=== PATIENT | female | born 1975 | race African-American/Black ===

== ENCOUNTER 2016-09-07 22:01 | Inpatient (IN) | payer OTHER ==
[~2016-09-07] VITALS: Ht 165.1 cm; Wt 130.6 kg
--- NOTE | ~2016-09-07 | EKG ---
[address] [place] [address] ELECTROCARDIOGRAM REPORT Name: PATRICIA MCGUIRE Room #: 434-P 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
--- NOTE | ~2016-09-07 | HC ---
[facility] [place] [address] CONSULTATION Name: PATRICIA MCGUIRE Room #: 434-P [facility] [place] .R.#: [id number] Admission: 09/08/16 Attend Phys: Carroll Gan MD Discharge: 09/10/16 Date of : 79 Report #: [id number] THIS REPORT FOR: //name// CC: FAM unknown Carroll Gan HISTORY OF PRESENT ILLNESS: The patient is a 41-year-old female who awoke this morning with right-sided numbness the face, arm and leg. She still has it today. The patient was concerned about being discharged because she did not want to go home and have a stroke. The patient realizes that she also has a history of anxiety. She was seen at [facility] and is on clonazepam 1 mg twice a day. Since she has been in the hospital, clonazepam has been discontinued. The patient has been on clonazepam for approximately 3 years. Along with anxiety, there are no other neurological symptoms. The patient does not have double vision, blurry vision, difficulty speaking or swallowing, vertigo, lightheadedness or unilateral weakness, numbness or tingling. The patient does have headaches. She has had chronic daily headache for the past year. She takes Tylenol every day. These headaches are bifrontal pressure sensation lasting 3-4 hours, sometimes they are better with sleep or with taking Tylenol, which again she takes on a daily basis. PAST MEDICAL HISTORY: Hypertension, asthma, anxiety, gastroesophageal reflux, panic attack. PAST SURGICAL HISTORY: Noncontributory. MEDICATIONS: Indomethacin 25 mg t.i.d., metoprolol 50 mg b.i.d., pantoprazole 40 mg daily, Senokot 2 tablets at bedtime. At home she also takes clonazepam 1 mg b.i.d. ALLERGIES: None. VITAL SIGNS: Temperature is 36.7, pulse rate 61, respiratory rate 18, blood pressure 121/78, bedside pulse oximetry 100% on room air. LABORATORY DATA: White blood cell count 4.5, hemoglobin 10.6, hematocrit 32.4, MCV 74.7, platelet count 187,000. Chemistry: Sodium 136, potassium 3.4, chloride 102, carbon dioxide 25, BUN 9, creatinine 0.5, GFR 113, glucose 93, calcium 8.4, magnesium 1.7, total bilirubin 0.3, AST 20, ALT 24, alkaline phosphatase 93, creatinine kinase 120, total protein 2.7, albumin 3.4. IMAGING: CT scan of the head and MRI of the head are negative for stroke. In fact, they are both unremarkable. NEUROLOGIC: Cranial nerves 2-12 are grossly intact. Motor exam demonstrates symmetrical strength in all 4 extremities with tone and bulk normal. Reflexes [address] [address] CONSULTATION Name: PATRICIA MCGUIRE Room #: 434-P [facility] [place] M.R.#: [id number] Admission: 09/08/16 Attend Phys: Carroll Gan MD Discharge: 09/10/16 Date of : 79 Report #: [id number] are trace throughout. Plantar responses are flexor. There is no evidence of dysmetria. Gait was not tested. IMPRESSION AND PLAN: This patient has paresthesias of the right hemibody. This is most likely related to anxiety. If there is no medical reason to discontinue clonazepam, I would put the patient back on clonazepam 1 mg twice a day. I discussed stroke risk factors with the patient. I explained that she would be considered young to have a stroke, but she does have some risk factors including obesity and a history of hypertension, although her blood pressure is well controlled. She does not have diabetes, but I will check her lipid profile in the morning as this is a risk factor for stroke if her cholesterol is not well controlled. We also discussed her chronic daily headache and I asked her not to take Tylenol on a daily basis. She might benefit from a medication such as topiramate 25 mg at bedtime. This may help her lose weight as well. I thank you for your kind referral of the patient. <ELECTRONICALLY SIGNED> By: Yolanda Reardon DO 09/10/16 1457 2038 0039 Yolanda Reardon DO /nt
[~2016-09-07 22:01] MED LIST: ADVAIR 100-501 EACH; ADVAIR 250-501 EACH; ALBUTEROL INHAL17 GM IH; ALBUTEROL2.5 MG/0.1; ALBUTEROL2.5 MG/32; AMBIEN; AZITHROMYCIN 2250 MG PO; BIRTH CONTROL; CHERATUSSIN DA480 ML; CLARITIN10 M2; CLONAZEPAM 1 MG1 M1 PO; COMPAZINE10 MG PO; CYMBALTA60 MG PO; DEPAKOTE 250MG250 M1; DOXYCYCLINE 10100 M1 PO; FERRO-TIME325 MG; FERRO-TIME325 MG PO; FLAGYL500 MG PO; FLONASE; GABAPENTIN100 MG PO; GEODON60 MG; IBUPROFEN 800800 M1 PO; IBUPROFEN 800800 MG PO; IRON325 PO; IRON45 MG PO; KEFLEX500 MG PO; LATUDA20 MG; LATUDA40 MG PO; LOPRESSOR50 PO; MUCINEX600 MG PO; NAPROSYN500 MG PO; NORCO 5-325 TA1 EACH PO; NORFLEX100 MG PO; PENICILLIN VK500 M1 PO; PHENERGAN 25 MG25 M1 PO; PREDNISONE 20 M20 MG PO; PRISTIQ50 MG PO; PROVENTIL; PROVENTIL HFA6.7 G1; PSEUDOEPHEDRINE; SIMVASTATIN20 MG PO; TESSALON PERLE100 MG PO; TRAZODONE 150150 M1; VICODIN 5-5001 EACH PO; ZANTAC 150MG T150 M1 PO; ZANTAC 150MG T150 MG PO; ZESTORETIC 20-1 EAC1 PO; ZPAK; ZPAK PO
[2016-09-07 22:08] VITALS: BP 138/77
[2016-09-07 22:56] LABS: ABSOLUTE NEUTROPHILS 2.8 thou/uL (1.4-8.2); BASOPHILS 0.4 % (0.0-2.0); EOSINOPHILS 4.6 % (0.0-3.0); HEMATOCRIT 33.9 % (37.0-47.0); LYMPHOCYTES 30.3 % (24.0-44.0); MCH 24.5 pg (26.0-34.0); MCHC 32.5 g/dL (28.0-37.0); MCV 75.2 fL (80.0-100.0); MONOCYTES 8.7 % (1.0-8.0); PLATELET COUNT 210 thou/uL (150-400); RBC 4.51 mil/uL (4.20-5.00); RDW 16.2 % (10.5-14.5)
[2016-09-07 23:02] LABS: MANUAL DIFF NO
[2016-09-07 23:03] LABS: ANION GAP 8 mmol/L (7-16); BUN 8 mg/dL (7-18); CALCIUM 8.5 mg/dL (8.5-10.1); CHLORIDE 103 mmol/L (98-107); CO2 27 mmol/L (21-32); CREATININE 0.7 mg/dL (0.6-1.0); GLUCOSE 98 mg/dL (74-106); POTASSIUM 3.4 mmol/L (3.5-5.1); SODIUM 138 mmol/L (136-145)
[2016-09-07 23:21] LABS: ALBUMIN 3.4 g/dL (3.4-5.0); ALKALINE PHOSPHATASE 93 U/L (46-116); CK-MB MASS 0.5 ng/mL (<0.5-3.6); MAGNESIUM 1.7 mg/dL (1.8-2.4); NT-PRO BRAIN NAT PEPTIDE 35 pg/mL (<300); SGOT 20 U/L (15-37); SGPT 24 U/L (30-65); TOTAL BILIRUBIN 0.3 mg/dL (<0.1-1.0); TOTAL PROTEIN 7.7 g/dL (6.4-8.2); TROPONIN-I < 0.04 ng/mL (<0.04-0.07)
[2016-09-07 23:59] VITALS: BP 141/85
[2016-09-08 00:30] VITALS: BP 138/87
[2016-09-08 04:29] VITALS: BP 125/69
[2016-09-08 06:02] LABS: HEMATOCRIT 32.4 % (37.0-47.0); HEMOGLOBIN 10.6 gm/dL (12.0-15.0); MCH 24.3 pg (26.0-34.0); MCHC 32.6 g/dL (28.0-37.0); MCV 74.7 fL (80.0-100.0); RBC 4.34 mil/uL (4.20-5.00); RDW 15.9 % (10.5-14.5); WBC 4.5 thou/uL (4.0-11.0)
[2016-09-08 06:38] LABS: CALCIUM 8.4 mg/dL (8.5-10.1); CREATININE 0.7 mg/dL (0.6-1.0); POTASSIUM 3.4 mmol/L (3.5-5.1)
[2016-09-08 08:09] VITALS: BP 113/65
[2016-09-08 15:42] VITALS: BP 141/80
[2016-09-08 19:13] VITALS: BP 115/65
[2016-09-09 04:44] VITALS: BP 143/73
[2016-09-09] MEDS ORDERED: INDOMETHACIN 2525 MG PO (08:28)
[2016-09-09 09:20] VITALS: BP 143/73
[2016-09-09 16:04] VITALS: BP 121/76
[2016-09-09 20:05] VITALS: BP 149/68
[2016-09-10 04:03] LABS: CHOLESTEROL 182 mg/dL (<200); HDL CHOLESTEROL 33 mg/dL (>40); LDL CHOLESTEROL 122 mg/dL (<100); SERUM ASSESSMENT Clear; TC:HDL 5.5 Ratio (Not establshd); TRIGLYCERIDE 139 mg/dL (<150); VLDL 28 mg/dL (<40)
[2016-09-10 05:15] VITALS: BP 122/63
[2016-09-10 08:00] VITALS: BP 126/89
[2016-09-10 11:32] VITALS: BP 143/73
== END 2016-09-10 12:33 | disposition home or self-care (01) | DRG 206 ==
LOC: ER 22:01 → 4S 23:44 → EROBS 23:44 → 4S 09-08 00:23
PROVIDERS: Emergency Medicine; Nurse Practitioner Family; Psychiatry & Neurology Neurology
DX: M94.0 Chondrocostal junction syndrome [Tietze] (principal); Z68.42 Body mass index [BMI] 45.0-49.9, adult; J45.909 Unspecified asthma, uncomplicated; K21.9 Gastro-esophageal reflux disease without esophagitis; I10 Essential (primary) hypertension; M79.605 Pain in left leg; M79.604 Pain in right leg; F41.9 Anxiety disorder, unspecified; R51 Headache; D64.9 Anemia, unspecified; R07.89 Other chest pain; E83.42 Hypomagnesemia; E87.6 Hypokalemia; F20.9 Schizophrenia, unspecified; E66.9 Obesity, unspecified; Z79.899 Other long term (current) drug therapy; Z82.49 Family history of ischemic heart disease and other diseases of the circulatory system; Z80.9 Family history of malignant neoplasm, unspecified; Z83.3 Family history of diabetes mellitus
CPT/HCPCS: 10100

== ENCOUNTER 2016-11-21 20:29 | Emergency (ER) | payer OTHER ==
[~2016-11-21] VITALS: Ht 167.6 cm; Wt 138.3 kg
--- NOTE | ~2016-11-21 | EKG ---
[place] [address] [facility] [place] [address] ELECTROCARDIOGRAM REPORT Name: PATRICIA MCGUIRE ROBERTCaity [facility] #: [facility] [id number] Admission: 11/21/16 Attend Phys: Discharge: 11/21/16 Date of : [birth year] Report #: [id number] THIS REPORT FOR: //name// [facility] ED Test Date: 2016-11-21 Test Time: 21:10:19 Pat Name: PATRICIA MCGUIRE Department: Room: Gender: F Manager University: [place] : 1975 Requested By: Simone Tracy Order Number: [id number] MD: Kemar Valdivia Measurements Intervals [place] Rate: 70 P: 29 NE: 147 QRS: 33 QRSD: 111 T: 9 QT: 390 QTc: 421 Interpretive Statements Sinus rhythm No significant abnormality Compared to ECG 09/07/2016 22:06:13 No significant changes Electronically Signed On 11-22-2016 8:36:17 CDT by Kemar Valdivia [email or web address] <ELECTRONICALLY SIGNED> By: Kemar Valdivia MD, [facility] 11/22/16 0836 09 09 Kemar Valdivia MD, FACC /EPI
[~2016-11-21 20:29] MED LIST changes: +INDOMETHACIN 2525 MG PO
[2016-11-21 21:32] LABS: ABSOLUTE NEUTROPHILS 3.7 thou/uL (1.4-8.2); BASOPHILS 0.5 % (0.0-2.0); EOSINOPHILS 1.3 % (0.0-3.0); HEMATOCRIT 35.9 % (37.0-47.0); HEMOGLOBIN 11.3 gm/dL (12.0-15.0); MCH 23.8 pg (26.0-34.0); MCHC 31.5 g/dL (28.0-37.0); MCV 75.7 fL (80.0-100.0); MONOCYTES 7.6 % (1.0-8.0); PLATELET COUNT 247 thou/uL (150-400); POLYS 65.6 % (36.0-66.0); RBC 4.75 mil/uL (4.20-5.00); WBC 5.6 thou/uL (4.0-11.0)
[2016-11-21 21:35] LABS: MANUAL DIFF NO
[2016-11-21 21:39] LABS: ANION GAP 7 mmol/L (7-16); BUN 13 mg/dL (7-18); CALCIUM 9.4 mg/dL (8.5-10.1); CHLORIDE 102 mmol/L (98-107); CO2 28 mmol/L (21-32); CREATININE 0.9 mg/dL (0.6-1.0); GLUCOSE 106 mg/dL (74-106); POTASSIUM 3.8 mmol/L (3.5-5.1); SODIUM 137 mmol/L (136-145)
[2016-11-21 21:47] LABS: TROPONIN-I < 0.04 ng/mL (<0.04-0.07)
[2016-11-21] MEDS ORDERED: BUTALB-APAP-CA1 EACH PO (23:16)
== END 2016-11-21 23:42 | disposition home or self-care (01) ==
LOC: ER 20:29
PROVIDERS: Emergency Medicine
DX: R51 Headache (principal); I10 Essential (primary) hypertension; J45.909 Unspecified asthma, uncomplicated; F41.9 Anxiety disorder, unspecified; E78.00 Pure hypercholesterolemia, unspecified; K21.9 Gastro-esophageal reflux disease without esophagitis; F20.9 Schizophrenia, unspecified; Z87.440 Personal history of urinary (tract) infections

== ENCOUNTER 2017-10-06 09:37 | Emergency (ER) | payer OTHER ==
[~2017-10-06] VITALS: Ht 167.6 cm; Wt 133.8 kg
[~2017-10-06 09:37] MED LIST changes: +BUTALB-APAP-CA1 EACH PO
[2017-10-06] MEDS ORDERED: IBUPROFEN 600600 M1 PO (09:45)
[2017-10-06] MEDS ORDERED: MOBIC15 MG PO (11:00)
== END 2017-10-06 11:19 | disposition home or self-care (01) ==
LOC: ER 09:37
DX: S83.91XA Sprain of unspecified site of right knee, initial encounter (principal); W10.9XXA Fall (on) (from) unspecified stairs and steps, initial encounter; Y93.89 Activity, other specified; Y92.89 Other specified places as the place of occurrence of the external cause; Y99.8 Other external cause status; I10 Essential (primary) hypertension; F41.9 Anxiety disorder, unspecified; J45.909 Unspecified asthma, uncomplicated; K21.9 Gastro-esophageal reflux disease without esophagitis; E78.00 Pure hypercholesterolemia, unspecified

== ENCOUNTER 2017-11-12 17:21 | Emergency (ER) | payer OTHER ==
[~2017-11-12] VITALS: Ht 167.6 cm; Wt 133.8 kg
--- NOTE | ~2017-11-12 | EKG ---
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: JLAMBERTZ : 1975 Requested By: Mel Cotton Order Number: [id number] MD: Kemar Valdivia Measurements Intervals [place] Rate: 80 P: 151 GA: 137 QRS: 131 QRSD: 102 T: -15 QT: 369 QTc: 426 Interpretive Statements Lead reversal, recommend repeat tracing Sinus or ectopic atrial rhythm Left atrial enlargement Right axis deviation Compared to ECG 11/21/2016 21:10:19 Lead reversal is now present Electronically Signed On 11-13-2017 9:08:45 CDT by Kemar Valdivia [email or web address] <ELECTRONICALLY SIGNED> By: Kemar Valdivia MD, [facility] 08907 174 45 Kemar Valdivia MD, [facility] /EPI
[~2017-11-12 17:21] MED LIST changes: +IBUPROFEN 600600 M1 PO; +MOBIC15 MG PO
[2017-11-12 17:38] LABS: ABSOLUTE NEUTROPHILS 3.9 thou/uL (1.4-8.2); BASOPHILS 0.4 % (0.0-2.0); EOSINOPHILS 2.1 % (0.0-3.0); HEMATOCRIT 40.6 % (37.0-47.0); HEMOGLOBIN 13.5 gm/dL (12.0-15.0); LYMPHOCYTES 26.7 % (24.0-44.0); MCH 25.3 pg (26.0-34.0); MCHC 33.3 g/dL (28.0-37.0); MONOCYTES 8.7 % (1.0-8.0); PLATELET COUNT 273 thou/uL (150-400); POLYS 62.1 % (36.0-66.0); RBC 5.34 mil/uL (4.20-5.00); WBC 6.4 thou/uL (4.0-11.0)
[2017-11-12 17:46] LABS: ANION GAP 8 mmol/L (7-16); BUN 11 mg/dL (7-18); CALCIUM 9.4 mg/dL (8.5-10.1); CHLORIDE 101 mmol/L (98-107); CO2 25 mmol/L (21-32); CREATININE 0.8 mg/dL (0.6-1.0); GLUCOSE 136 mg/dL (74-106); POTASSIUM 3.9 mmol/L (3.5-5.1); SODIUM 134 mmol/L (136-145)
[2017-11-12 17:56] LABS: ALBUMIN 3.7 g/dL (3.4-5.0); SGOT 26 U/L (15-37); SGPT 36 U/L (30-65); TOTAL BILIRUBIN 0.4 mg/dL (<0.1-1.0); TOTAL PROTEIN 8.9 g/dL (6.4-8.2); TROPONIN-I <0.06 ng/mL (<0.06)
[2017-11-12] MEDS ORDERED: LEVSIN0.125 MG PO (20:19)
[2017-11-12] MEDS ORDERED: MOBIC7.5 MG PO (20:19)
== END 2017-11-12 20:39 | disposition home or self-care (01) ==
LOC: ER 17:21
PROVIDERS: Physician Assistant
DX: R07.89 Other chest pain (principal); R10.11 Right upper quadrant pain; R42 Dizziness and giddiness; I10 Essential (primary) hypertension; F41.9 Anxiety disorder, unspecified; J45.909 Unspecified asthma, uncomplicated; F20.9 Schizophrenia, unspecified; E78.00 Pure hypercholesterolemia, unspecified; E66.9 Obesity, unspecified; K21.9 Gastro-esophageal reflux disease without esophagitis; Z86.2 Personal history of diseases of the blood and blood-forming organs and certain disorders involving the immune mechanism; Z68.42 Body mass index [BMI] 45.0-49.9, adult

== ENCOUNTER 2018-01-19 13:59 | Emergency (ER) | payer OTHER ==
[~2018-01-19] VITALS: Ht 167.6 cm; Wt 136.1 kg
--- NOTE | ~2018-01-19 | EKG ---
[place] [address] [facility] [place] [address] ELECTROCARDIOGRAM REPORT Name: PATRICIA MCGUIER [facility] [id number] Admission: 01/19/18 Attend Phys: Discharge: 01/19/18 Date of : [birth year] Report #: [id number] THIS REPORT FOR: //name// [facility] ED Test Date: 2018-01-19 Test Time: 14:12:47 Pat Name: PATRICIA MCGUIRE Department: Room: Gender: F Proposal Consultant: LUNA : 1975 Requested By: Simone Tracy Order Number: [id number] MD: Kemar Valdivia Measurements Intervals [place] Rate: 90 P: 38 [place]: 139 QRS: 40 QRSD: 102 T: 6 QT: 375 QTc: 459 Interpretive Statements Sinus rhythm Normal tracing Compared to ECG 12/11/2017 22:10:19 No significant changes Electronically Signed On 01-22-2018 8:19:13 CDT by Kemar Valdivia [email or web address] <ELECTRONICALLY SIGNED> By: Kemar Valdivia MD, [facility] 01/22/18 0819 1412 1412 Kemar Valdivia MD, FACC /EPI
[~2018-01-19 13:59] MED LIST changes: +CELEBREX 200 M200 M1 PO; +HYDROCODONE-AP1 EAC6 PO; +LEVSIN0.125 MG PO; +MOBIC7.5 MG PO
[2018-01-19 14:34] LABS: ABSOLUTE NEUTROPHILS 2.9 thou/uL (1.4-8.2); BASOPHILS 0.5 % (0.0-2.0); EOSINOPHILS 1.9 % (0.0-3.0); HEMATOCRIT 40.8 % (37.0-47.0); HEMOGLOBIN 13.6 gm/dL (12.0-15.0); LYMPHOCYTES 28.6 % (24.0-44.0); MCH 25.1 pg (26.0-34.0); MCHC 33.4 g/dL (28.0-37.0); MCV 75.2 fL (80.0-100.0); PLATELET COUNT 247 thou/uL (150-400); RBC 5.43 mil/uL (4.20-5.00); RDW 14.8 % (10.5-14.5); WBC 4.8 thou/uL (4.0-11.0)
[2018-01-19 14:42] LABS: ANION GAP 6 mmol/L (7-16); BUN 7 mg/dL (7-18); CALCIUM 9.8 mg/dL (8.5-10.1); CHLORIDE 100 mmol/L (98-107); CO2 29 mmol/L (21-32); CREATININE 0.8 mg/dL (0.6-1.0); GLUCOSE 111 mg/dL (74-106); POTASSIUM 3.8 mmol/L (3.5-5.1); SODIUM 135 mmol/L (136-145)
[2018-01-19] MEDS ORDERED: LATUDA60 MG PO (14:47)
[2018-01-19] MEDS ORDERED: OMEPRAZOLE20 MG PO (14:48)
[2018-01-19 14:50] LABS: TROPONIN-I <0.06 ng/mL (<0.06)
== END 2018-01-19 16:16 | disposition home or self-care (01) ==
LOC: ER 13:59
PROVIDERS: Emergency Medicine
DX: R07.89 Other chest pain (principal); H53.8 Other visual disturbances; R53.1 Weakness; M25.511 Pain in right shoulder; R10.10 Upper abdominal pain, unspecified; M79.661 Pain in right lower leg; I10 Essential (primary) hypertension; F41.9 Anxiety disorder, unspecified; J45.909 Unspecified asthma, uncomplicated; F20.9 Schizophrenia, unspecified; E78.00 Pure hypercholesterolemia, unspecified; K21.9 Gastro-esophageal reflux disease without esophagitis; Z86.2 Personal history of diseases of the blood and blood-forming organs and certain disorders involving the immune mechanism

== ENCOUNTER 2018-03-11 16:23 | Emergency (ER) | payer OTHER ==
[~2018-03-11] VITALS: Ht 167.6 cm; Wt 136.1 kg
--- NOTE | ~2018-03-11 | EKG ---
[place] [address] [facility] [place] [address] ELECTROCARDIOGRAM REPORT Name: PATRICIA MCGUIRE ROBERTCaity Room #: [facility]P [facility]adRashad[facility] [id number] Admission: 03/11/18 Attend Phys: Discharge: 03/11/18 Date of : 79 Report #: [id number] THIS REPORT FOR: //name// [facility] ED Test Date: 2018-03-11 Test Time: 17:41:50 Pat Name: PATRICIA MCGUIRE Department: Room: Gender: F Hat Trimmer: ... : 1975 Requested By: Jeff Choe Order Number: [id number] MD: Steve Humphrey Measurements Intervals [place] Rate: 85 P: 60 [place]: 153 QRS: 44 QRSD: 102 T: 16 QT: 385 QTc: 458 Interpretive Statements Sinus rhythm Probable left atrial enlargement Compared to ECG 01/19/2018 14:12:47 No significant changes Electronically Signed On 03-12-2018 8:06:56 ROLLER INSPECTOR by Steve Humphrey [email or web address] <ELECTRONICALLY SIGNED> By: Steve Humphrey MD 03/12/18 0806 174 1741 MD SINAN Kumari
[~2018-03-11 16:23] MED LIST changes: +LATUDA60 MG PO; +OMEPRAZOLE20 MG PO
[2018-03-11 17:22] LABS: ABSOLUTE NEUTROPHILS 3.1 thou/uL (1.4-8.2); BASOPHILS 0.5 % (0.0-2.0); EOSINOPHILS 1.5 % (0.0-3.0); HEMATOCRIT 40.5 % (37.0-47.0); HEMOGLOBIN 13.3 gm/dL (12.0-15.0); LYMPHOCYTES 26.9 % (24.0-44.0); MCHC 32.9 g/dL (28.0-37.0); MCV 76.2 fL (80.0-100.0); MONOCYTES 7.7 % (1.0-8.0); PLATELET COUNT 245 thou/uL (150-400); POLYS 63.4 % (36.0-66.0); RBC 5.32 mil/uL (4.20-5.00); RDW 14.3 % (10.5-14.5); WBC 4.8 thou/uL (4.0-11.0)
[2018-03-11 17:28] LABS: ANION GAP 8 mmol/L (7-16); BUN 9 mg/dL (7-18); CALCIUM 9.6 mg/dL (8.5-10.1); CHLORIDE 98 mmol/L (98-107); CO2 27 mmol/L (21-32); CREATININE 0.8 mg/dL (0.6-1.0); GLUCOSE 106 mg/dL (74-106); POTASSIUM 3.5 mmol/L (3.5-5.1); SODIUM 133 mmol/L (136-145)
[2018-03-11 17:37] LABS: TROPONIN-I <0.06 ng/mL (<0.06)
[2018-03-11 19:06] VITALS: BP 147/90
== END 2018-03-11 19:08 | disposition home or self-care (01) ==
LOC: ER 16:23
PROVIDERS: Physician Assistant
DX: I10 Essential (primary) hypertension (principal); R20.2 Paresthesia of skin; F41.9 Anxiety disorder, unspecified; J45.909 Unspecified asthma, uncomplicated; F20.9 Schizophrenia, unspecified; E78.00 Pure hypercholesterolemia, unspecified; K21.9 Gastro-esophageal reflux disease without esophagitis; Z86.2 Personal history of diseases of the blood and blood-forming organs and certain disorders involving the immune mechanism

== ENCOUNTER 2018-04-03 17:57 | Emergency (ER) | payer OTHER ==
[~2018-04-03] VITALS: Ht 165.1 cm; Wt 140.6 kg
[~2018-04-03 17:57] MED LIST changes: -ADVAIR 100-501 EACH; +ADVAIR 100-501 EACH PO
[2018-04-03] MEDS ORDERED: LASIX 40 MG TAB40 M2 PO (18:57)
[2018-04-03] MEDS ORDERED: POTASSIUM20 PO (18:57)
[2018-04-03 19:06] LABS: BASOPHILS 0.5 % (0.0-2.0); EOSINOPHILS 1.8 % (0.0-3.0); HEMATOCRIT 39.5 % (37.0-47.0); HEMOGLOBIN 13.1 gm/dL (12.0-15.0); LYMPHOCYTES 30.7 % (24.0-44.0); MCH 25.2 pg (26.0-34.0); MCHC 33.2 g/dL (28.0-37.0); MCV 75.8 fL (80.0-100.0); MONOCYTES 8.7 % (1.0-8.0); PLATELET COUNT 240 thou/uL (150-400); POLYS 58.3 % (36.0-66.0); RBC 5.22 mil/uL (4.20-5.00); RDW 14.9 % (10.5-14.5); WBC 5.1 thou/uL (4.0-11.0)
[2018-04-03 19:15] LABS: ANION GAP 8 mmol/L (7-16); BUN 10 mg/dL (7-18); CALCIUM 9.4 mg/dL (8.5-10.1); CHLORIDE 99 mmol/L (98-107); CO2 29 mmol/L (21-32); CREATININE 0.8 mg/dL (0.6-1.0); GLUCOSE 120 mg/dL (74-106); POTASSIUM 3.8 mmol/L (3.5-5.1); SODIUM 136 mmol/L (136-145)
[2018-04-03 19:23] LABS: ALBUMIN 3.9 g/dL (3.4-5.0); SGOT 22 U/L (15-37); SGPT 36 U/L (30-65); TOTAL BILIRUBIN 0.3 mg/dL (<0.1-1.0); TOTAL PROTEIN 8.7 g/dL (6.4-8.2); TROPONIN-I <0.06 ng/mL (<0.06)
[2018-04-03 20:37] LABS: URINE BILIRUBIN NEGATIVE (Negative); URINE BLOOD NEGATIVE (Negative); URINE CLARITY CLEAR; URINE COLOR YELLOW; URINE GLUCOSE-RANDOM* NEGATIVE (Negative); URINE KETONES NEGATIVE (Negative); URINE LEUKOCYTES-REFLEX NEGATIVE (Negative); URINE NITRITE-REFLEX NEGATIVE (Negative); URINE PROTEIN (DIPSTICK) NEGATIVE (Negative); URINE UROBILINOGEN 0.2 E.U./dl (0.2-1.0)
[2018-04-03 20:49] VITALS: BP 144/88
--- NOTE | 2018-04-04 08:10 | EKG ---
[place] [address] [place] 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: LAZARO : 1975 Requested By: Jeff Choe Order Number: [id number] MD: Kemar Valdivia Measurements Intervals [place] Rate: 80 P: 37 [place]: 139 QRS: 37 QRSD: 98 T: 15 QT: 379 QTc: 438 Interpretive Statements Sinus rhythm Abnormal R-wave progression, late transition Compared to ECG 03/11/2018 17:41:50 No significant changes Electronically Signed On 04-04-2018 8:09:57 STACK CLERK by Kemar Valdivia [email or web address] <ELECTRONICALLY SIGNED> By: Kemar Valdivia MD, [facility] 04/04/18 0809 1819 18 Kemar Valdivia MD, FACC /EPI
== END 2018-04-03 20:50 | disposition home or self-care (01) ==
LOC: ER 17:57
PROVIDERS: Emergency Medicine; Physician Assistant
DX: R60.0 Localized edema (principal); I10 Essential (primary) hypertension; F41.9 Anxiety disorder, unspecified; J45.909 Unspecified asthma, uncomplicated; F20.9 Schizophrenia, unspecified; E78.00 Pure hypercholesterolemia, unspecified; K21.9 Gastro-esophageal reflux disease without esophagitis; Z87.440 Personal history of urinary (tract) infections; Z86.2 Personal history of diseases of the blood and blood-forming organs and certain disorders involving the immune mechanism

== ENCOUNTER 2018-04-20 06:21 | Emergency (ER) | payer OTHER ==
[~2018-04-20] VITALS: Ht 165.1 cm; Wt 140.2 kg
[~2018-04-20 06:21] MED LIST changes: +LASIX 40 MG TAB40 M2 PO; +POTASSIUM20 PO
[2018-04-20 06:51] LABS: ABSOLUTE NEUTROPHILS 2.9 thou/uL (1.4-8.2); BASOPHILS 0.5 % (0.0-2.0); EOSINOPHILS 2.4 % (0.0-3.0); LYMPHOCYTES 30.4 % (24.0-44.0); MCH 25.2 pg (26.0-34.0); MCHC 33.3 g/dL (28.0-37.0); MCV 75.8 fL (80.0-100.0); PLATELET COUNT 246 thou/uL (150-400); POLYS 57.7 % (36.0-66.0); RBC 4.74 mil/uL (4.20-5.00); RDW 14.3 % (10.5-14.5)
[2018-04-20 07:08] LABS: ALBUMIN 3.6 g/dL (3.4-5.0); DIRECT BILIRUBIN < 0.1 mg/dL (<0.1-0.3); LIPASE 89 U/L (73-393); SGOT 27 U/L (15-37); SGPT 37 U/L (30-65); TOTAL BILIRUBIN 0.4 mg/dL (<0.1-1.0); TOTAL PROTEIN 7.9 g/dL (6.4-8.2); TROPONIN-I <0.06 ng/mL (<0.06)
[2018-04-20] MEDS ORDERED: PROTONIX40 M1 PO (08:03)
[2018-04-20] MEDS ORDERED: CARAFATE1 GM PO (08:03)
[2018-04-20 08:21] VITALS: BP 129/59
--- NOTE | 2018-04-20 08:52 | EKG ---
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: [facility] : 1975 Requested By: Simone Tracy Order Number: [id number] MD: Kemar Valdivia Measurements Intervals [place] Rate: 79 P: 67 [place]: 177 QRS: 34 QRSD: 107 T: 15 QT: 398 QTc: 457 Interpretive Statements Sinus rhythm Normal tracing Compared to ECG 04/03/2018 18:19:52 No significant changes Electronically Signed On 04-20-2018 8:52:39 PAINTING DEPARTMENT SUPERVISOR by Kemar Valdivia [email or web address] <ELECTRONICALLY SIGNED> By: Kemar Valdivia MD, [facility] 04/20/18 0852 0628 0628 Kemar Valdivia MD, FACC /EPI
== END 2018-04-20 08:23 | disposition home or self-care (01) ==
LOC: ER 06:21
PROVIDERS: Emergency Medicine
DX: K21.9 Gastro-esophageal reflux disease without esophagitis (principal); I10 Essential (primary) hypertension; F41.9 Anxiety disorder, unspecified; J45.909 Unspecified asthma, uncomplicated; F20.9 Schizophrenia, unspecified; E78.00 Pure hypercholesterolemia, unspecified; Z87.440 Personal history of urinary (tract) infections; Z86.2 Personal history of diseases of the blood and blood-forming organs and certain disorders involving the immune mechanism

== ENCOUNTER 2018-05-16 15:16 | Emergency (ER) | payer OTHER ==
[~2018-05-16] VITALS: Ht 167.6 cm; Wt 136.1 kg
[~2018-05-16 15:16] MED LIST changes: +CARAFATE1 GM PO; +PROTONIX40 M1 PO
[2018-05-16 16:32] LABS: ABSOLUTE NEUTROPHILS 2.5 thou/uL (1.4-8.2); BASOPHILS 0.2 % (0.0-2.0); EOSINOPHILS 2.5 % (0.0-3.0); HEMATOCRIT 38.5 % (37.0-47.0); HEMOGLOBIN 12.7 gm/dL (12.0-15.0); MCV 75.8 fL (80.0-100.0); MONOCYTES 7.9 % (1.0-8.0); PLATELET COUNT 270 thou/uL (150-400); POLYS 58.4 % (36.0-66.0); RBC 5.08 mil/uL (4.20-5.00); RDW 14.6 % (10.5-14.5); WBC 4.3 thou/uL (4.0-11.0)
[2018-05-16 16:35] LABS: ANION GAP 6 mmol/L (7-16); BUN 6 mg/dL (7-18); CALCIUM 9.2 mg/dL (8.5-10.1); CHLORIDE 101 mmol/L (98-107); CO2 28 mmol/L (21-32); CREATININE 0.8 mg/dL (0.6-1.0); GLUCOSE 94 mg/dL (74-106); POTASSIUM 3.3 mmol/L (3.5-5.1); SODIUM 135 mmol/L (136-145)
[2018-05-16 16:43] LABS: ALBUMIN 3.7 g/dL (3.4-5.0); DIRECT BILIRUBIN 0.1 mg/dL (<0.1-0.3); LIPASE 65 U/L (73-393); SGOT 23 U/L (15-37); SGPT 36 U/L (30-65); TOTAL BILIRUBIN 0.5 mg/dL (<0.1-1.0); TOTAL PROTEIN 8.1 g/dL (6.4-8.2); TROPONIN-I <0.06 ng/mL (<0.06)
[2018-05-16] MEDS ORDERED: PROTONIX40 MG PO (16:53)
[2018-05-16 17:09] VITALS: BP 137/67
--- NOTE | 2018-05-16 19:09 | EKG ---
[place] [address] [facility] [place] [address] ELECTROCARDIOGRAM REPORT Name: PATRICIA MCGUIRE ROBERTCaity Room #: DEP [facility]#: [id number] Admission: 05/16/18 Attend Phys: Discharge: 05/16/18 Date of : [birth year] Report #: [id number] THIS REPORT FOR: //name// [facility] ED Test Date: 2018-05-16 Test Time: 15:19:36 Pat Name: PATRICIA MCGUIRE Department: Room: Gender: F Baker: WG : 1975 Requested By: Simone Tracy Order Number: [id number] MD: Trevor Suarez Measurements Intervals [place] Rate: 72 P: 45 IN: 149 QRS: 63 QRSD: 109 T: 30 QT: 405 QTc: 444 Interpretive Statements Sinus rhythm Compared to ECG 04/20/2018 06:28:46 No significant changes Electronically Signed On 05-16-2018 19:09:06 DIRECTOR TOXICOLOGY by Trevor Suarez [email or web address] <ELECTRONICALLY SIGNED> By: Trevor Suarez MD 05/16/18 1909 1519 1519 Trevor Suarez MD /RADHA
== END 2018-05-16 17:10 | disposition home or self-care (01) ==
LOC: ER 15:16
PROVIDERS: Emergency Medicine
DX: K21.9 Gastro-esophageal reflux disease without esophagitis (principal); I10 Essential (primary) hypertension; J45.909 Unspecified asthma, uncomplicated; F41.9 Anxiety disorder, unspecified; F20.9 Schizophrenia, unspecified; E78.5 Hyperlipidemia, unspecified; E78.00 Pure hypercholesterolemia, unspecified; Z86.2 Personal history of diseases of the blood and blood-forming organs and certain disorders involving the immune mechanism

== ENCOUNTER 2018-10-15 19:58 | Emergency (ER) | payer OTHER ==
[~2018-10-15] VITALS: Ht 167.6 cm; Wt 131.5 kg
[~2018-10-15 19:58] MED LIST changes: +PROTONIX40 MG PO
[2018-10-15 20:48] LABS: URINE BILIRUBIN NEGATIVE (Negative); URINE BLOOD NEGATIVE (Negative); URINE CLARITY CLEAR; URINE COLOR YELLOW; URINE GLUCOSE-RANDOM* NEGATIVE (Negative); URINE KETONES NEGATIVE (Negative); URINE NITRITE-REFLEX NEGATIVE (Negative); URINE PROTEIN (DIPSTICK) NEGATIVE (Negative); URINE SPECIFIC GRAVITY 1.015 (1.005-1.035)
[2018-10-15 20:51] LABS: URINE LEUKOCYTES-REFLEX 2+ (Negative)
[2018-10-15 21:02] LABS: BACTERIA-REFLEX None Seen /HPF (None Seen); CASTS None Seen /LPF (None Seen); CRYSTALS None Seen /LPF (None Seen); SQUAMOUS >10 Many /LPF (0-3); URINE RBC 0-2 Rare /HPF (0-2); URINE WBC-REFLEX 6-15 Few /HPF (0-5)
[2018-10-15 21:20] LABS: HEMATOCRIT 37.1 % (37.0-47.0); HEMOGLOBIN 12.6 gm/dL (12.0-15.0); MCH 25.5 pg (26.0-34.0); MCHC 33.9 g/dL (28.0-37.0); MCV 75.1 fL (80.0-100.0); RBC 4.94 mil/uL (4.20-5.00); RDW 14.8 % (10.5-14.5); WBC 4.9 thou/uL (4.0-11.0)
[2018-10-15 21:30] LABS: CALCIUM 9.5 mg/dL (8.5-10.1); CREATININE 0.8 mg/dL (0.6-1.0)
[2018-10-15 21:43] LABS: ALBUMIN 3.8 g/dL (3.4-5.0); DIRECT BILIRUBIN 0.1 mg/dL (<0.1-0.3); TOTAL BILIRUBIN 0.4 mg/dL (<0.1-1.0); TOTAL PROTEIN 8.4 g/dL (6.4-8.2)
[2018-10-15] MEDS ORDERED: FLAGYL500 M1 PO (22:42)
[2018-10-15] MEDS ORDERED: MOBIC15 MG PO (22:53)
[2018-10-15] MEDS ORDERED: ZOFRAN ODT4 MG PO (22:53)
[2018-10-15 23:12] VITALS: BP 140/91
== END 2018-10-15 23:15 | disposition home or self-care (01) ==
LOC: ER 19:58
PROVIDERS: Emergency Medicine
DX: N76.0 Acute vaginitis (principal); B96.89 Other specified bacterial agents as the cause of diseases classified elsewhere; I10 Essential (primary) hypertension; F41.9 Anxiety disorder, unspecified; J45.909 Unspecified asthma, uncomplicated; F20.9 Schizophrenia, unspecified; E78.00 Pure hypercholesterolemia, unspecified; K21.9 Gastro-esophageal reflux disease without esophagitis; Z86.2 Personal history of diseases of the blood and blood-forming organs and certain disorders involving the immune mechanism

== ENCOUNTER 2018-11-13 19:47 | Emergency (ER) | payer OTHER ==
[~2018-11-13] VITALS: Ht 167.6 cm; Wt 123.8 kg
[~2018-11-13 19:47] MED LIST changes: +FLAGYL500 M1 PO; +ZOFRAN ODT4 MG PO
[2018-11-13 20:13] LABS: URINE BILIRUBIN NEGATIVE (Negative); URINE BLOOD NEGATIVE (Negative); URINE CLARITY CLEAR; URINE COLOR YELLOW; URINE GLUCOSE-RANDOM* NEGATIVE (Negative); URINE KETONES NEGATIVE (Negative); URINE LEUKOCYTES-REFLEX NEGATIVE (Negative); URINE NITRITE-REFLEX NEGATIVE (Negative); URINE PROTEIN (DIPSTICK) NEGATIVE (Negative); URINE SPECIFIC GRAVITY <= 1.005 (1.005-1.035); URINE UROBILINOGEN 0.2 E.U./dl (0.2-1.0)
[2018-11-13 20:25] LABS: AMP/METHAMP Negative (Negative); BARBITURATES Negative (Negative); BENZODIAZEPINES Negative (Negative); COCAINE Negative (Negative); METHADONE Negative (Negative); OPIATES Negative (Negative); PCP Negative (Negative)
[2018-11-13] MEDS ORDERED: NORFLEX100 MG PO (20:49)
[2018-11-13] MEDS ORDERED: TYLENOL EXTRA500 MG PO (20:49)
[2018-11-13 21:02] VITALS: BP 130/77
--- NOTE | 2018-11-14 07:50 | EKG ---
[address] [place] [address] ELECTROCARDIOGRAM REPORT Name: PATRICIA MCGUIRE ROBERTCaity Room #: [facility]P [facility]adRashad#: [id number] Admission: 11/13/18 Attend Phys: Discharge: 11/13/18 Date of : [birth year] Report #: [id number] THIS REPORT FOR: //name// [facility] ED Test Date: 2018-11-13 Test Time: 20:19:46 Pat Name: PATRICIA MCGUIRE Department: Room: Gender: F Domestic Cleaner: JONI : 1975 Requested By: Simone Tracy Order Number: [id number] MD: Steve Humphrey Measurements Intervals [place] Rate: 70 P: 34 [place]: 146 QRS: 30 QRSD: 97 T: 19 QT: 398 QTc: 430 Interpretive Statements Sinus rhythm Compared to ECG 05/16/2018 15:19:36 No significant changes Electronically Signed On 11-14-2018 7:50:33 CDT by Steve Humphrey [email or web address] <ELECTRONICALLY SIGNED> By: Steve Humphrey MD 11/14/18 0750 18 18 Steve Humphrey MD /RADHA
== END 2018-11-13 21:03 | disposition home or self-care (01) ==
LOC: ER 19:47
PROVIDERS: Emergency Medicine
DX: M79.18 Myalgia, other site (principal); M54.6 Pain in thoracic spine; I10 Essential (primary) hypertension; F41.9 Anxiety disorder, unspecified; J45.909 Unspecified asthma, uncomplicated; F20.9 Schizophrenia, unspecified; E78.00 Pure hypercholesterolemia, unspecified; K21.9 Gastro-esophageal reflux disease without esophagitis; Z87.440 Personal history of urinary (tract) infections; Z86.2 Personal history of diseases of the blood and blood-forming organs and certain disorders involving the immune mechanism; Z79.899 Other long term (current) drug therapy

== ENCOUNTER 2019-01-16 00:09 | Emergency (ER) | payer OTHER ==
[~2019-01-16] VITALS: Ht 167.6 cm; Wt 127.0 kg
[~2019-01-16 00:09] MED LIST changes: +TYLENOL EXTRA500 MG PO
[2019-01-16] MEDS ORDERED: DESYREL150 MG PO (00:30)
[2019-01-16 00:46] LABS: ABSOLUTE NEUTROPHILS 3.5 thou/uL (1.4-8.2); BASOPHILS 0.4 % (0.0-2.0); HEMATOCRIT 37.7 % (37.0-47.0); HEMOGLOBIN 12.2 gm/dL (12.0-15.0); LYMPHOCYTES 30.5 % (24.0-44.0); MCH 25.1 pg (26.0-34.0); MCHC 32.4 g/dL (28.0-37.0); MCV 77.5 fL (80.0-100.0); PLATELET COUNT 247 thou/uL (150-400); POLYS 60.1 % (36.0-66.0); RBC 4.86 mil/uL (4.20-5.00); RDW 14.6 % (10.5-14.5); WBC 5.8 thou/uL (4.0-11.0)
[2019-01-16 00:50] LABS: ANION GAP 8 mmol/L (7-16); BUN 4 mg/dL (7-18); CALCIUM 8.9 mg/dL (8.5-10.1); CHLORIDE 101 mmol/L (98-107); CO2 30 mmol/L (21-32); CREATININE 0.7 mg/dL (0.6-1.0); GLUCOSE 130 mg/dL (74-106); POTASSIUM 3.6 mmol/L (3.5-5.1); SODIUM 139 mmol/L (136-145)
[2019-01-16 00:58] LABS: TROPONIN-I <0.06 ng/mL (<0.06)
[2019-01-16 01:43] VITALS: BP 151/74
--- NOTE | 2019-01-16 08:30 | EKG ---
[place] [address] [place] [address] ELECTROCARDIOGRAM REPORT Name: PATRICIA MCGUIRE Room #: [facility]ashadRashad#: [id number] Admission: 01/16/19 Attend Phys: Discharge: 01/16/19 Date of : [birth year] Report #: [id number] THIS REPORT FOR: //name// [facility] ED Test Date: 2019-01-16 Test Time: 00:20:05 Pat Name: PATRICIA MCGUIRE Department: Room: Gender: F Professor Of Medicine: kayla : 1975 Requested By: Norman Cameron Order Number: [id number] MD: Kemar Valdivia Measurements Intervals [place] Rate: 71 P: 36 [place]: 165 QRS: 19 QRSD: 101 T: 19 QT: 417 QTc: 454 Interpretive Statements Sinus rhythm Normal tracing Compared to ECG 11/13/2018 20:19:46 No significant changes Electronically Signed On 01-16-2019 8:30:24 CDT by Kemar Valdivia [email or web address] <ELECTRONICALLY SIGNED> By: Kemar Valdivia MD, [facility] 01/16/19 0830 0020 0020 Kemar Valdivia MD, FACC /EPI
== END 2019-01-16 01:43 | disposition home or self-care (01) ==
LOC: ER 00:09
PROVIDERS: Emergency Medicine
DX: R07.89 Other chest pain (principal); I10 Essential (primary) hypertension; F41.9 Anxiety disorder, unspecified; J45.909 Unspecified asthma, uncomplicated; F20.9 Schizophrenia, unspecified; E78.00 Pure hypercholesterolemia, unspecified; K21.9 Gastro-esophageal reflux disease without esophagitis; Z86.2 Personal history of diseases of the blood and blood-forming organs and certain disorders involving the immune mechanism; Z87.440 Personal history of urinary (tract) infections

== ENCOUNTER 2019-02-01 21:41 | Emergency (ER) | payer OTHER ==
[~2019-02-01] VITALS: Ht 167.6 cm; Wt 127.0 kg
[~2019-02-01 21:41] MED LIST changes: +DESYREL150 MG PO
[2019-02-01 22:35] LABS: HEMATOCRIT 37.7 % (37.0-47.0); MCH 24.9 pg (26.0-34.0); MCHC 31.9 g/dL (28.0-37.0); MCV 78.2 fL (80.0-100.0); RBC 4.82 mil/uL (4.20-5.00); RDW 14.7 % (10.5-14.5); WBC 4.6 thou/uL (4.0-11.0)
[2019-02-01 22:38] LABS: ANION GAP 6 mmol/L (7-16); BUN 7 mg/dL (7-18); CALCIUM 8.7 mg/dL (8.5-10.1); CHLORIDE 100 mmol/L (98-107); CO2 30 mmol/L (21-32); CREATININE 0.8 mg/dL (0.6-1.0); GLUCOSE 113 mg/dL (74-106); POTASSIUM 3.6 mmol/L (3.5-5.1); SODIUM 136 mmol/L (136-145)
[2019-02-01 22:46] LABS: ALBUMIN 3.6 g/dL (3.4-5.0); LIPASE 68 U/L (73-393); SGOT 19 U/L (15-37); SGPT 21 U/L (30-65); TOTAL BILIRUBIN 0.4 mg/dL (<0.1-1.0); TOTAL PROTEIN 7.7 g/dL (6.4-8.2); TROPONIN-I <0.06 ng/mL (<0.06)
[2019-02-01 23:10] LABS: URINE BILIRUBIN NEGATIVE (Negative); URINE BLOOD NEGATIVE (Negative); URINE CLARITY CLEAR; URINE COLOR YELLOW; URINE GLUCOSE-RANDOM* NEGATIVE (Negative); URINE KETONES NEGATIVE (Negative); URINE LEUKOCYTES-REFLEX TRACE (Negative); URINE NITRITE-REFLEX NEGATIVE (Negative); URINE PROTEIN (DIPSTICK) NEGATIVE (Negative); URINE UROBILINOGEN 0.2 E.U./dl (0.2-1.0)
[2019-02-02] MEDS ORDERED: ZOFRAN4 MG PO (01:19)
[2019-02-02 01:32] VITALS: BP 159/69
--- NOTE | 2019-02-03 11:21 | EKG ---
[address] [address] ELECTROCARDIOGRAM REPORT Name: PATRICIA MCGUIRE ROBERTCaity Room #: [facility] [id number] Admission: 02/01/19 Attend Phys: Discharge: 02/02/19 Date of : [birth year] Report #: [id number] THIS REPORT FOR: //name// [facility] ED Test Date: 2019-02-01 Test Time: 21:47:11 Pat Name: PATRICIA MCGUIRE Department: Room: Gender: F User Experience Architect: DOMI : 1975 Requested By: Ariana Lombardo Order Number: [id number] MD: Steve Humphrey Measurements Intervals [place] Rate: 66 P: 43 [place]: 158 QRS: 38 QRSD: 110 T: 33 QT: 427 QTc: 448 Interpretive Statements Sinus rhythm Probable left atrial enlargement Compared to ECG 01/16/2019 00:20:05 No significant changes Electronically Signed On 02-03-2019 11:21:43 SUPERVISOR HEAT TREATING by Steve Humphrey [email or web address] <ELECTRONICALLY SIGNED> By: Steve Humphrey MD 02/03/19 1121 2146 46 Steve Humphrey MD /RADHA
== END 2019-02-02 01:33 | disposition home or self-care (01) ==
LOC: ER 21:41
PROVIDERS: Student in an Organized Health Care Education/Training Program
DX: N83.201 Unspecified ovarian cyst, right side (principal); R11.2 Nausea with vomiting, unspecified; I10 Essential (primary) hypertension; F41.9 Anxiety disorder, unspecified; E78.00 Pure hypercholesterolemia, unspecified; K21.9 Gastro-esophageal reflux disease without esophagitis; J45.909 Unspecified asthma, uncomplicated; F20.9 Schizophrenia, unspecified; Z86.73 Personal history of transient ischemic attack (TIA), and cerebral infarction without residual deficits; Z86.2 Personal history of diseases of the blood and blood-forming organs and certain disorders involving the immune mechanism; Z87.891 Personal history of nicotine dependence

== ENCOUNTER 2019-02-19 12:51 | Emergency (ER) | payer OTHER ==
[~2019-02-19] VITALS: Ht 167.6 cm; Wt 126.1 kg
[~2019-02-19 12:51] MED LIST changes: +ZOFRAN4 MG PO
[2019-02-19] MEDS ORDERED: NORFLEX100 MG PO (15:11)
[2019-02-19] MEDS ORDERED: NAPROSYN500 MG PO (15:11)
[2019-02-19] MEDS ORDERED: TRAMADOL 50 MG50 MG PO (15:11)
[2019-02-19 16:24] VITALS: BP 144/78
== END 2019-02-19 16:25 | disposition home or self-care (01) ==
LOC: ER 12:51
DX: G44.219 Episodic tension-type headache, not intractable (principal); R20.2 Paresthesia of skin; J45.909 Unspecified asthma, uncomplicated; F20.9 Schizophrenia, unspecified; E78.00 Pure hypercholesterolemia, unspecified; I10 Essential (primary) hypertension; K21.9 Gastro-esophageal reflux disease without esophagitis; Z87.440 Personal history of urinary (tract) infections; Z87.891 Personal history of nicotine dependence; Z86.73 Personal history of transient ischemic attack (TIA), and cerebral infarction without residual deficits; Z86.2 Personal history of diseases of the blood and blood-forming organs and certain disorders involving the immune mechanism

== ENCOUNTER 2019-02-21 17:23 | Emergency (ER) | payer OTHER ==
[~2019-02-21] VITALS: Ht 167.6 cm; Wt 126.1 kg
[~2019-02-21 17:23] MED LIST changes: +TRAMADOL 50 MG50 MG PO
[2019-02-21 17:48] LABS: ABSOLUTE NEUTROPHILS 3.2 thou/uL (1.4-8.2); BASOPHILS 0.5 % (0.0-2.0); EOSINOPHILS 1.5 % (0.0-3.0); HEMATOCRIT 38.3 % (37.0-47.0); HEMOGLOBIN 12.4 gm/dL (12.0-15.0); LYMPHOCYTES 27.5 % (24.0-44.0); MCH 25.3 pg (26.0-34.0); MCHC 32.4 g/dL (28.0-37.0); MONOCYTES 7.7 % (1.0-8.0); PLATELET COUNT 254 thou/uL (150-400); POLYS 62.8 % (36.0-66.0); RBC 4.91 mil/uL (4.20-5.00); RDW 14.8 % (10.5-14.5); WBC 5.1 thou/uL (4.0-11.0)
[2019-02-21 17:55] LABS: ANION GAP 7 mmol/L (7-16); BUN 3 mg/dL (7-18); CALCIUM 9.5 mg/dL (8.5-10.1); CHLORIDE 102 mmol/L (98-107); CO2 29 mmol/L (21-32); CREATININE 0.7 mg/dL (0.6-1.0); GLUCOSE 91 mg/dL (74-106); POTASSIUM 3.8 mmol/L (3.5-5.1); SODIUM 138 mmol/L (136-145)
[2019-02-21 18:04] LABS: TROPONIN-I <0.06 ng/mL (<0.06)
[2019-02-21 18:24] LABS: ALBUMIN 3.7 g/dL (3.4-5.0); DIRECT BILIRUBIN < 0.1 mg/dL (<0.1-0.3); LIPASE 68 U/L (73-393); SGOT 26 U/L (15-37); SGPT 26 U/L (30-65); TOTAL BILIRUBIN 0.4 mg/dL (<0.1-1.0); TOTAL PROTEIN 8.1 g/dL (6.4-8.2)
[2019-02-21] MEDS ORDERED: ONDANSETRON ODT8 MG PO (18:43)
[2019-02-21] MEDS ORDERED: NAPROSYN500 MG PO (18:43)
[2019-02-21 19:45] VITALS: BP 138/76
--- NOTE | 2019-02-22 09:19 | EKG ---
[place] [address] [facility] [place] [address] ELECTROCARDIOGRAM REPORT Name: PATRICIA MCGUIRE Room #: [facility] [id number] Admission: 02/21/19 Attend Phys: Discharge: 02/21/19 Date of : [birth year] Report #: [id number] THIS REPORT FOR: //name// [facility] ED Test Date: 2019-02-21 Test Time: 17:26:14 Pat Name: PATRICIA MCGUIRE Department: Room: Gender: F Senior Ios Developer: [facility] : 1975 Requested By: Norman Cameron Order Number: [id number] MD: Kemar Valdivia Measurements Intervals [place] Rate: 64 P: 44 [place]: 156 QRS: 47 QRSD: 107 T: 25 QT: 413 QTc: 426 Interpretive Statements Sinus rhythm Normal tracing Compared to ECG 02/01/2019 21:47:11 No significant changes Electronically Signed On 02-22-2019 9:18:52 PASTE UP ARTIST APPRENTICE by Kemar Valdivia [email or web address] <ELECTRONICALLY SIGNED> By: Kemar Valdivia MD, [facility] 02/22/19 0918 1726 1726 Kemar Valdivia MD, FACC /EPI
== END 2019-02-21 19:45 | disposition home or self-care (01) ==
LOC: ER 17:23
PROVIDERS: Emergency Medicine
DX: I10 Essential (primary) hypertension (principal); R07.89 Other chest pain; R11.0 Nausea; K21.9 Gastro-esophageal reflux disease without esophagitis; F41.9 Anxiety disorder, unspecified; F20.9 Schizophrenia, unspecified; E78.00 Pure hypercholesterolemia, unspecified; Z86.73 Personal history of transient ischemic attack (TIA), and cerebral infarction without residual deficits; Z86.2 Personal history of diseases of the blood and blood-forming organs and certain disorders involving the immune mechanism; Z87.891 Personal history of nicotine dependence

== ENCOUNTER 2019-02-24 21:19 | Emergency (ER) | payer OTHER ==
[~2019-02-24] VITALS: Ht 167.6 cm; Wt 126.1 kg
[~2019-02-24 21:19] MED LIST changes: +ONDANSETRON ODT8 MG PO
[2019-02-24 22:14] LABS: ABSOLUTE NEUTROPHILS 2.5 thou/uL (1.4-8.2); BASOPHILS 0.8 % (0.0-2.0); HEMATOCRIT 39.4 % (37.0-47.0); HEMOGLOBIN 12.8 gm/dL (12.0-15.0); LYMPHOCYTES 35.3 % (24.0-44.0); MCH 25.2 pg (26.0-34.0); MCHC 32.6 g/dL (28.0-37.0); MCV 77.4 fL (80.0-100.0); MONOCYTES 7.3 % (1.0-8.0); PLATELET COUNT 262 thou/uL (150-400); POLYS 54.6 % (36.0-66.0); RDW 14.3 % (10.5-14.5); WBC 4.6 thou/uL (4.0-11.0)
[2019-02-24 22:20] LABS: URINE BILIRUBIN NEGATIVE (Negative); URINE BLOOD 2+ (Negative); URINE CLARITY CLEAR; URINE COLOR YELLOW; URINE GLUCOSE-RANDOM* NEGATIVE (Negative); URINE KETONES NEGATIVE (Negative); URINE LEUKOCYTES-REFLEX NEGATIVE (Negative); URINE NITRITE-REFLEX NEGATIVE (Negative); URINE PROTEIN (DIPSTICK) NEGATIVE (Negative); URINE SPECIFIC GRAVITY <= 1.005 (1.005-1.035); URINE UROBILINOGEN 0.2 E.U./dl (0.2-1.0)
[2019-02-24 22:22] LABS: ANION GAP 7 mmol/L (7-16); BUN 4 mg/dL (7-18); CALCIUM 9.6 mg/dL (8.5-10.1); CHLORIDE 100 mmol/L (98-107); CO2 30 mmol/L (21-32); CREATININE 0.8 mg/dL (0.6-1.0); GLUCOSE 97 mg/dL (74-106); POTASSIUM 3.7 mmol/L (3.5-5.1); SODIUM 137 mmol/L (136-145)
[2019-02-24 22:32] LABS: ALBUMIN 3.9 g/dL (3.4-5.0); LIPASE 67 U/L (73-393); SGOT 24 U/L (15-37); SGPT 31 U/L (30-65); TOTAL BILIRUBIN 0.4 mg/dL (<0.1-1.0); TOTAL PROTEIN 8.4 g/dL (6.4-8.2); TROPONIN-I <0.06 ng/mL (<0.06)
[2019-02-24 22:32] LABS: AMP/METHAMP Negative (Negative); BARBITURATES Negative (Negative); BENZODIAZEPINES Negative (Negative); COCAINE Negative (Negative); METHADONE Negative (Negative); OPIATES Negative (Negative); PCP Negative (Negative)
[2019-02-24 22:57] LABS: BACTERIA-REFLEX None Seen /HPF (None Seen); CASTS None Seen /LPF (None Seen); CRYSTALS None Seen /LPF (None Seen); MUCUS None Seen strn/LPF (None Seen); SQUAMOUS 0-3 Few /LPF (0-3); URINE RBC None Seen /HPF (0-2); URINE WBC-REFLEX None Seen /HPF (0-5)
[2019-02-25] MEDS ORDERED: CATAPRES0.1 MG PO (00:12)
[2019-02-25 00:41] VITALS: BP 138/77
--- NOTE | 2019-02-25 08:05 | EKG ---
[place] [address] [facility] [place] [address] ELECTROCARDIOGRAM REPORT Name: PATRICIA MCGUIRE Room #: [facility]ITAL[facility]ashadRashad#: [id number] Admission: 02/24/19 Attend Phys: Discharge: 02/25/19 Date of : [birth year] Report #: [id number] THIS REPORT FOR: //name// [facility] ED Test Date: 2019-02-24 Test Time: 21:27:45 Pat Name: PATRICIA MCGUIRE Department: Room: Gender: F Foundry Helper: MARTINA : 1975 Requested By: Grisel Spangler Order Number: [id number] MD: Kemar Valdivia Measurements Intervals [place] Rate: 69 P: 48 NV: 163 QRS: 36 QRSD: 95 T: 14 QT: 400 QTc: 429 Interpretive Statements Sinus rhythm Normal tracing Compared to ECG 02/21/2019 17:26:14 No significant changes Electronically Signed On 02-25-2019 8:05:51 WELDING MACHINE ASSEMBLER by Kemar Valdivia [email or web address] <ELECTRONICALLY SIGNED> By: Kemar Valdivia MD, [facility] 02/25/19 0805 26 26 Kemar Valdivia MD, FACC /EPI
== END 2019-02-25 00:50 | disposition home or self-care (01) ==
LOC: ER 21:19
PROVIDERS: Nurse Practitioner Family
DX: I10 Essential (primary) hypertension (principal); R20.2 Paresthesia of skin; R51 Headache; J45.909 Unspecified asthma, uncomplicated; K21.9 Gastro-esophageal reflux disease without esophagitis; F41.9 Anxiety disorder, unspecified; F20.9 Schizophrenia, unspecified; E78.00 Pure hypercholesterolemia, unspecified; Z86.73 Personal history of transient ischemic attack (TIA), and cerebral infarction without residual deficits; Z87.891 Personal history of nicotine dependence